=== PATIENT | male | born 1965 | race Caucasian/White ===

== ENCOUNTER 2019-10-02 07:00 | Inpatient (IN) ==
[2019-10-04] MEDS ORDERED: DEXTROSE 10% 250 ML BAG IV PRN (09:52)
[2019-10-04] MEDS ORDERED: GLUCAGON 1 MG VIAL IM PRN (09:52)
[2019-10-04 10:33] LABS: Basophils % 0.5 % (0.0-0.8); Eosinophils # 0.1 10*3/uL (0.0-0.87); Eosinophils % 1.2 % (0.00-10.9); Hematocrit 45.1 VOL% (42.0-52.0); Hemoglobin 15.5 GM/DL (14.0-18.0); Immature Granulocytes % 0.2 %; Immature Granulocytes Absolute 0.01 #; Lymphocytes # 1.3 10*3/uL (1.4-4.0); Lymphocytes % 21.2 % (21.2-54.2); Mean Corpuscular HGB Conc 34.4 GM/DL (32-36); Mean Corpuscular Volume 88.6 FL (87-102); Mean Platelet Volume 10.4 FL (9.6-12.0); Monocytes % 9.4 % (1.7-12.7); Neutrophils % 67.5 % (38.7-73.9); Platelet Count 279 T/CUMM (130-400); Red Blood Count 5.09 MC/CUMM (3.8-5.5); Red Cell Distribution Width 11.5 % (9.3-17.3); White Blood Count 6.1 T/CUMM (4-12)
[2019-10-04] MEDS ORDERED: NITROGLYCERIN SL 0.4 MG TABLET SL PRN (10:37)
[2019-10-04] MEDS ORDERED: MORPHINE 4 MG/1 ML VIAL IV PRN (10:38)
[2019-10-04] MEDS ORDERED: ZALEPLON 5 MG CAPSULE PO PRN (10:38)
[2019-10-04 10:49] LABS: Albumin 4.2 G/DL (3.4-5.0); Bilirubin,Total 0.4 MG/DL (0.2-1.0); Calcium 9.9 MG/DL (8.5-10.1); Osmolality,Calculated 269.4 MOS/KG (273-304); Total Protein 7.8 G/DL (6.4-8.3)
[2019-10-04 11:20] LABS: ABG Base Excess 1.4 MMOL/L (-2.5-2.5); ABG HCO3 25.6 MMOL/L (20-26); ABG Oxygen Saturation 96.7 % (95-100); ABG PH 7.456 (7.35-7.45); ABG TCO2 20.6 MMOL/L (23-27)
[2019-10-04] MEDS: CHLORHEXIDINE 4% SOLN 118 ML BOTTLE TOP SCH ×2 (15:24→21:07)
[2019-10-04] MEDS: CHLORHEXIDINE 0.12% ORAL RINSE 60 ML BOTTLE SWISH/SPIT SCH (21:07)
[2019-10-05] MEDS ORDERED: PAPAVERINE 60 MG/2 ML VIAL ONE (04:25)
[2019-10-05] MEDS ORDERED: VANCOMYCIN 500 MG VIAL ONE (04:26)
[2019-10-05] MEDS ORDERED: VANCOMYCIN 1,000 MG VIAL ONE (04:26)
[2019-10-05] MEDS: CHLORHEXIDINE 4% SOLN 118 ML BOTTLE TOP SCH ×2 (04:41→11:21)
[2019-10-05] MEDS ORDERED: DIAZEPAM 5 MG TABLET PO ONE (05:00)
[2019-10-05] MEDS ORDERED: FAMOTIDINE 20 MG TABLET PO ONE (05:00)
[2019-10-05] MEDS ORDERED: CEFUROXIME INJ 1,500 MG in SYRINGE 1 EACH IV ONE (06:00)
[2019-10-05 07:32] LABS: ABG Base Excess 1.6 MMOL/L (-2.5-2.5); ABG HCO3 25.9 MMOL/L (20-26); ABG PH 7.496 (7.35-7.45); ABG TCO2 20.4 MMOL/L (23-27); Glucose Heart Surgery 96 MG/DL (74-106); Hematocrit Heart Surgery 43.9 PERCENT (42-52); Hemoglobin Heart Surgery 14.3 G/DL (14.0-18.0); Ionized Calcium Arterial 1.14 MMOL/L (1.21-1.46); PH Patient Temp Arterial 7.496; Patient Temperature 37 CELCIUS; Potassium Heart/CVR 3.5 MMOL/L (3.5-5.1); Sodium Heart/CVR 136 MMOL/L (135-145)
[2019-10-05 08:28] LABS: Apearance,Urine CLEAR (Clear); Bilirubin,Urine Negative (Negative); Blood, Urine Negative (Negative); Glucose,Urine (UA) Negative (Negative); Hyaline Casts,Urine 1 /LPF (0-3); Ketones,Urine Negative (Negative); Mucus,Urine Occasional /LPF (Occasional); Nitrite,Urine Negative (Negative); Protein,Urine Negative; RBC,Urine 1 /HPF (0-4); Squamous Epithelial Cell,Urine Occasional /HPF (0-10); Urine Color Yellow (Yellow); Urine Specific Gravity 1.021 (1.001-1.035); Urine Urobilinogen < 2.0 EU/DL (0.2-1.0); WBC,Urine 5 /HPF (0-6)
[2019-10-05 08:49] LABS: Hematocrit Heart Surgery 27.3 PERCENT (42-52); Hemoglobin Heart Surgery 8.8 G/DL (14.0-18.0); PCO2 Patient Temp Venous 33.5 MM HG; PH Patient Temp Venous 7.467; PO2 Patient Temp Venous 38.5 MM HG; Potassium Heart/CVR 4.2 MMOL/L (3.5-5.1); VBG Base Excess 0.9 MEQ/L (0-4); VBG Oxygen Saturation 82.1 %; VBG PCO2 36.9 MMHG (41-51); VBG PH 7.437; VBG PO2 44.3 MMHG (17-40)
[2019-10-05] MEDS ORDERED: PHENYLEPHRINE DRIP 40 MG/250 ML PREMIX IV ONE (08:52)
[2019-10-05] MEDS ORDERED: POTASSIUM CHLORIDE RIDER 100 ML IV ONE (08:52)
[2019-10-05] MEDS ORDERED: PHENYLEPHRINE DRIP 20 MG/250 ML PREMIX IV ONE (09:09)
[2019-10-05] MEDS ORDERED: SEVOFLURANE 1 UNIT/15 MINUTE INH ONE (09:09)
[2019-10-05] MEDS ORDERED: HEPARIN/NACL 0.9% 2 UNITS/ML 500 ML IV ONE (09:09)
[2019-10-05] MEDS ORDERED: CALCIUM CHLORIDE 1,000 MG/10 ML VIAL IV ONE (09:09)
[2019-10-05] MEDS ORDERED: LIDOCAINE 2% 5 ML VIAL ONE ×2 (09:09→10:25)
[2019-10-05] MEDS ORDERED: MIDAZOLAM 10 MG/2 ML VIAL ONE (09:09)
[2019-10-05] MEDS ORDERED: ETOMIDATE 40 MG/20 ML VIAL IV ONE (09:10)
[2019-10-05] MEDS ORDERED: SUFentanil 250 MCG/5 ML AMP ONE (09:10)
[2019-10-05] MEDS ORDERED: VECURONIUM 10 MG VIAL IV ONE (09:10)
[2019-10-05] MEDS ORDERED: NITROGLYCERIN DRIP 50 MG/250 ML BOTTLE IV ONE (09:10)
[2019-10-05] MEDS ORDERED: MINERAL OIL/PETROLATUM OPH OINT 3.5 GM TUBE ONE (09:10)
[2019-10-05] MEDS ORDERED: SUFentanil 50 MCG/ML AMP ONE (09:10)
[2019-10-05] MEDS ORDERED: GLYCOPYRROLATE 0.4 MG/2 ML VIAL ONE (09:10)
[2019-10-05] MEDS ORDERED: AMINOCAPROIC ACID 5,000 MG/20 ML VIAL ONE (09:11)
[2019-10-05] MEDS ORDERED: SODIUM CHLORIDE 0.9% 1,000 ML IV ONE (09:11)
[2019-10-05] MEDS ORDERED: PHENYLEPHRINE 1 MG/10 ML SYRINGE IV ONE (09:11)
[2019-10-05] MEDS ORDERED: SODIUM CHLORIDE 0.9% 250 ML IV ONE (09:11)
[2019-10-05] MEDS ORDERED: LACTATED RINGERS 1,000 ML IV ONE (09:11)
[2019-10-05 09:23] LABS: Hematocrit Heart Surgery 31.9 PERCENT (42-52); Hemoglobin Heart Surgery 10.3 G/DL (14.0-18.0); PCO2 Patient Temp Venous 28.5 MM HG; PH Patient Temp Venous 7.515; Potassium Heart/CVR 3.9 MMOL/L (3.5-5.1); VBG Base Excess 0.9 MEQ/L (0-4); VBG Oxygen Saturation 89.2 %; VBG PCO2 38.1 MMHG (41-51); VBG PH 7.427; VBG PO2 54.2 MMHG (17-40)
[2019-10-05 09:53] LABS: Hematocrit Heart Surgery 33.9 PERCENT (42-52); PH Patient Temp Venous 7.512; PO2 Patient Temp Venous 37.8 MM HG; Potassium Heart/CVR 5.5 MMOL/L (3.5-5.1); VBG Oxygen Saturation 82.6 %; VBG PCO2 31.9 MMHG (41-51); VBG PH 7.482; VBG PO2 43.5 MMHG (17-40)
[2019-10-05] MEDS ORDERED: MAGNESIUM SULFATE 5 GM/10 ML VIAL IV ONE (10:25)
[2019-10-05] MEDS ORDERED: PROTAMINE SULFATE 250 MG/25 ML VIAL IV ONE (10:25)
[2019-10-05] MEDS ORDERED: MANNITOL 100 GM/500 ML BAG IV ONE (10:25)
[2019-10-05] MEDS ORDERED: DEXTROSE 5% KCL 20 MEQ 20 MEQ/1,000 ML BAG IV ONE (10:25)
[2019-10-05] MEDS ORDERED: SODIUM BICARBONATE 50 MEQ/50 ML VIAL IV ONE (10:25)
[2019-10-05] MEDS ORDERED: ALBUMIN 25% 25 GM/100 ML VIAL IV ONE (10:25)
[2019-10-05] MEDS ORDERED: HEPARIN 10,000 UNIT/10 ML VIAL ONE (10:26)
[2019-10-05] MEDS ORDERED: PROTAMINE SULFATE 50 MG/5 ML VIAL IV ONE (10:26)
[2019-10-05] MEDS ORDERED: methylPREDNISolone SOD SUC 1,000 MG/8 ML VIAL ONE (10:26)
[2019-10-05] MEDS ORDERED: POTASSIUM CHLORIDE 20 MEQ/10 ML VIAL ONE (10:26)
[2019-10-05] MEDS ORDERED: FUROSEMIDE 20 MG/2 ML VIAL ONE (10:26)
[2019-10-05 10:33] LABS: ABG Base Excess -0.8 MMOL/L (-2.5-2.5); ABG HCO3 23.7 MMOL/L (20-26); ABG Oxygen Saturation 99.7 % (95-100); ABG PCO2 36.8 MM HG (35-48); ABG PH 7.411 (7.35-7.45); ABG TCO2 20.8 MMOL/L (23-27); Glucose Heart Surgery 178 MG/DL (74-106); Hemoglobin Heart Surgery 11.7 G/DL (14.0-18.0); Ionized Calcium Arterial 1.29 MMOL/L (1.21-1.46); PCO2 Patient Temp Arterial 36.8 MMHG; PH Patient Temp Arterial 7.411; Patient Temperature 37 CELCIUS; Potassium Heart/CVR 3.5 MMOL/L (3.5-5.1); Sodium Heart/CVR 133 MMOL/L (135-145)
[2019-10-05] MEDS ORDERED: MAGNESIUM SULF RIDER 4 GM in PREMIX 1 EACH IV PRN (11:13)
[2019-10-05] MEDS ORDERED: INSULIN REGULAR DRIP 100 ML IV SCH (11:13)
[2019-10-05] MEDS ORDERED: LACTATED RINGERS 250 ML IV PRN (11:13)
[2019-10-05] MEDS ORDERED: MAGNESIUM SULF RIDER 2 GM in PREMIX 1 EACH IV PRN (11:13)
[2019-10-05] MEDS ORDERED: INSULIN REGULAR 100 UNIT/ML IV PRN (11:13)
[2019-10-05] MEDS ORDERED: MORPHINE 10 MG/1 ML VIAL IV PRN (11:13)
[2019-10-05] MEDS ORDERED: NITROPRUSSIDE 100 MG in DEXTROSE 5% 250 ML IV PRN (11:13)
[2019-10-05] MEDS ORDERED: PHENYLEPHRINE DRIP 40 MG/250 ML PREMIX IV PRN (11:13)
[2019-10-05] MEDS ORDERED: MIDAZOLAM 2 MG/2 ML VIAL IV PRN (11:13)
[2019-10-05] MEDS ORDERED: ACETAMINOPHEN 650 MG SUPP RECTAL PRN (11:13)
[2019-10-05] MEDS ORDERED: MIDAZOLAM 10 MG/2 ML VIAL IV PRN (11:13)
[2019-10-05] MEDS ORDERED: INSULIN REGULAR 100 UNIT/ML IV ONE (11:13)
[2019-10-05] MEDS ORDERED: CHLORHEXIDINE 4% SOLN 118 ML BOTTLE TOP PRN (11:13)
[2019-10-05] MEDS ORDERED: VECURONIUM 10 MG VIAL IV PRN ×2 (11:13)
[2019-10-05] MEDS ORDERED: CALCIUM CHLORIDE 1,000 MG/10 ML SYRINGE IV PRN (11:13)
[2019-10-05] MEDS ORDERED: DEXTROSE 10% 250 ML BAG IV PRN ×2 (11:13)
[2019-10-05] MEDS ORDERED: ONDANSETRON 4 MG/2 ML VIAL IV PRN (11:13)
[2019-10-05] MEDS ORDERED: SODIUM CHLORIDE 0.45% 1,000 ML IV SCH ×2 (11:13)
[2019-10-05 11:35] LABS: ABG Base Excess -0.5 MMOL/L (-2.5-2.5); ABG Oxygen Saturation 98.9 % (95-100); ABG PCO2 36.5 MM HG (35-48); ABG PH 7.418 (7.35-7.45); ABG TCO2 20.6 MMOL/L (23-27); Glucose Heart Surgery 150 MG/DL (74-106); Hematocrit Heart Surgery 39.3 PERCENT (42-52); Hemoglobin Heart Surgery 12.8 G/DL (14.0-18.0); Potassium Heart/CVR 3.1 MMOL/L (3.5-5.1)
[2019-10-05] MEDS: POTASSIUM CHLORIDE RIDER 20 MEQ in PREMIX 1 EACH IV PRN ×5 (11:37→20:30)
[2019-10-05 11:48] LABS: Basophils % 0.3 % (0.0-0.8); Eosinophils % 0.4 % (0.00-10.9); Hematocrit 36.7 VOL% (42.0-52.0); Hemoglobin 12.9 GM/DL (14.0-18.0); Immature Granulocytes % 0.4 %; Immature Granulocytes Absolute 0.04 #; Lymphocytes # 0.9 10*3/uL (1.4-4.0); Lymphocytes % 9.8 % (21.2-54.2); Mean Corpuscular HGB Conc 35.1 GM/DL (32-36); Mean Platelet Volume 10.4 FL (9.6-12.0); Neutrophils % 83.1 % (38.7-73.9); Platelet Count 203 T/CUMM (130-400); Red Blood Count 4.17 MC/CUMM (3.8-5.5); Red Cell Distribution Width 11.5 % (9.3-17.3); White Blood Count 9.4 T/CUMM (4-12)
[2019-10-05 11:53] LABS: INR 1.2; PT Patient Result 13.1 SECS (9.8-11.9); Partial Thromboplastin Time 26.8 SECS (23.9-33.8)
[2019-10-05 11:59] LABS: Albumin 3.7 G/DL (3.4-5.0); Calcium 9.1 MG/DL (8.5-10.1); Osmolality,Calculated 275.1 MOS/KG (273-304); Total Protein 6.4 G/DL (6.4-8.3)
[2019-10-05 12:01] LABS: CKMB % 7.2 %
[2019-10-05 12:04] LABS: Troponin I 4.26 NG/ML (0.00-0.045)
[2019-10-05] MEDS: POTASSIUM CHLORIDE RIDER 10 MEQ in PREMIX 1 EACH IV PRN ×2 (12:07→17:27)
[2019-10-05] MEDS: LACTATED RINGERS 1,000 ML IV PRN ×4 (12:09→20:18)
[2019-10-05 12:48] LABS: ABG Base Excess -0.1 MMOL/L (-2.5-2.5); ABG HCO3 24.4 MMOL/L (20-26); ABG Oxygen Saturation 98.9 % (95-100); ABG PCO2 35.7 MM HG (35-48); ABG PH 7.431 (7.35-7.45); ABG TCO2 20.8 MMOL/L (23-27); Glucose Heart Surgery 151 MG/DL (74-106); Hematocrit Heart Surgery 38.9 PERCENT (42-52); Hemoglobin Heart Surgery 12.6 G/DL (14.0-18.0); Potassium Heart/CVR 3.6 MMOL/L (3.5-5.1)
[2019-10-05 14:11] LABS: ABG Base Excess -0.9 MMOL/L (-2.5-2.5); ABG HCO3 23.6 MMOL/L (20-26); ABG Oxygen Saturation 97.5 % (95-100); ABG PCO2 37.2 MM HG (35-48); ABG PH 7.406 (7.35-7.45); ABG PO2 92.6 MM HG (80-95); ABG TCO2 20.4 MMOL/L (23-27); Glucose Heart Surgery 190 MG/DL (74-106); Hematocrit Heart Surgery 40.1 PERCENT (42-52); Hemoglobin Heart Surgery 13.1 G/DL (14.0-18.0); Potassium Heart/CVR 3.9 MMOL/L (3.5-5.1)
[2019-10-05] MEDS: ALBUMIN 5% 12.5 GM in PREMIX 1 EACH IV PRN ×2 (15:52→17:16)
[2019-10-05 16:44] LABS: ABG Base Excess -4.6 MMOL/L (-2.5-2.5); ABG HCO3 20.6 MMOL/L (20-26); ABG Oxygen Saturation 97.8 % (95-100); ABG PCO2 35.3 MM HG (35-48); ABG PH 7.364 (7.35-7.45); ABG TCO2 17.8 MMOL/L (23-27); Glucose Heart Surgery 220 MG/DL (74-106); Hematocrit Heart Surgery 38.4 PERCENT (42-52); Hemoglobin Heart Surgery 12.5 G/DL (14.0-18.0); Potassium Heart/CVR 3.6 MMOL/L (3.5-5.1)
[2019-10-05] MEDS: MORPHINE 4 MG/1 ML VIAL IV PRN (17:38)
[2019-10-05 18:29] LABS: ABG Base Excess -6.1 MMOL/L (-2.5-2.5); ABG HCO3 19.4 MMOL/L (20-26); ABG Oxygen Saturation 96.5 % (95-100); ABG PCO2 39.2 MM HG (35-48); ABG PO2 90.6 MM HG (80-95); ABG TCO2 17.8 MMOL/L (23-27); Glucose Heart Surgery 179 MG/DL (74-106); Hematocrit Heart Surgery 35.2 PERCENT (42-52); Hemoglobin Heart Surgery 11.4 G/DL (14.0-18.0); Potassium Heart/CVR 3.9 MMOL/L (3.5-5.1)
[2019-10-05] MEDS: CEFUROXIME INJ 1,500 MG in SYRINGE 1 EACH IV SCH (18:50)
[2019-10-05 20:11] LABS: ABG Base Excess -3.1 MMOL/L (-2.5-2.5); ABG HCO3 21.8 MMOL/L (20-26); ABG Oxygen Saturation 95.3 % (95-100); ABG PCO2 37.7 MM HG (35-48); ABG PH 7.369 (7.35-7.45); ABG PO2 76.3 MM HG (80-95); ABG TCO2 19.5 MMOL/L (23-27); Glucose Heart Surgery 151 MG/DL (74-106); Hematocrit Heart Surgery 35.6 PERCENT (42-52); Hemoglobin Heart Surgery 11.5 G/DL (14.0-18.0); Potassium Heart/CVR 4.2 MMOL/L (3.5-5.1)
[2019-10-05 20:24] LABS: CKMB % 5.8 %
[2019-10-05 20:26] LABS: Troponin I 2.86 NG/ML (0.00-0.045)
[2019-10-05] MEDS ORDERED: CHLORHEXIDINE 0.12% ORAL RINSE 60 ML BOTTLE SWISH/SPIT SCH (21:00)
[2019-10-06 04:35] LABS: ABG HCO3 24.4 MMOL/L (20-26); ABG Oxygen Saturation 94.6 % (95-100); ABG PCO2 36.4 MM HG (35-48); ABG PH 7.427 (7.35-7.45); ABG PO2 68.1 MM HG (80-95); ABG TCO2 21.4 MMOL/L (23-27); Glucose Heart Surgery 142 MG/DL (74-106); Hematocrit Heart Surgery 34.9 PERCENT (42-52); Hemoglobin Heart Surgery 11.3 G/DL (14.0-18.0); Potassium Heart/CVR 3.9 MMOL/L (3.5-5.1)
[2019-10-06 04:39] LABS: Basophils % 0.1 % (0.0-0.8); Hematocrit 33.5 VOL% (42.0-52.0); Hemoglobin 11.2 GM/DL (14.0-18.0); Immature Granulocytes % 0.4 %; Immature Granulocytes Absolute 0.05 #; Lymphocytes # 0.6 10*3/uL (1.4-4.0); Lymphocytes % 4.2 % (21.2-54.2); Mean Corpuscular HGB Conc 33.4 GM/DL (32-36); Mean Corpuscular Volume 92.5 FL (87-102); Mean Platelet Volume 10.6 FL (9.6-12.0); Monocytes % 5.1 % (1.7-12.7); Neutrophils % 90.2 % (38.7-73.9); Platelet Count 227 T/CUMM (130-400); Red Blood Count 3.62 MC/CUMM (3.8-5.5); Red Cell Distribution Width 11.9 % (9.3-17.3); White Blood Count 14.2 T/CUMM (4-12)
[2019-10-06] MEDS: POTASSIUM CHLORIDE RIDER 20 MEQ in PREMIX 1 EACH IV PRN ×2 (04:45→05:20)
[2019-10-06 04:58] LABS: Albumin 3.5 G/DL (3.4-5.0); Bilirubin,Direct 0.17 MG/DL (0.0-0.20); Bilirubin,Total 0.5 MG/DL (0.2-1.0); Calcium 8.3 MG/DL (8.5-10.1); Osmolality,Calculated 279.7 MOS/KG (273-304)
[2019-10-06 04:59] LABS: CKMB % 4.8 %
[2019-10-06 05:04] LABS: Troponin I 2.14 NG/ML (0.00-0.045)
[2019-10-06 05:38] LABS: Hypochromasia 1+; Lymphocytes 4 % (20-55); Platelet Estimate Adequate; Segmented Neutrophils 93 % (50-85); Total Cells Counted 100
[2019-10-06] MEDS: MORPHINE 4 MG/1 ML VIAL IV PRN (05:47)
[2019-10-06] MEDS: CEFUROXIME INJ 1,500 MG in SYRINGE 1 EACH IV SCH ×2 (06:23→17:49)
[2019-10-06] MEDS ORDERED: INSULIN REGULAR 100 UNIT/ML SUBCUT SCH (08:00)
[2019-10-06] MEDS ORDERED: MAGNESIUM HYDROXIDE SUSP 30 ML UDCUP PO PRN (08:38)
[2019-10-06] MEDS ORDERED: MAGNESIUM SULF RIDER 2 GM in PREMIX 1 EACH IV PRN (08:38)
[2019-10-06] MEDS ORDERED: ALUMINUM/MAGNES/SIMETH MAX STR 30 ML UDCUP PO PRN (08:38)
[2019-10-06] MEDS ORDERED: GLUCAGON 1 MG VIAL IM PRN (08:38)
[2019-10-06] MEDS ORDERED: DEXTROSE 50% 25 GM/50 ML VIAL IV PRN (08:38)
[2019-10-06] MEDS ORDERED: ACETAMINOPHEN 325 MG TABLET PO PRN (08:38)
[2019-10-06] MEDS ORDERED: ONDANSETRON 4 MG/2 ML VIAL IV PRN (08:38)
[2019-10-06] MEDS ORDERED: MAGNESIUM SULF RIDER 4 GM in PREMIX 1 EACH IV PRN (08:38)
[2019-10-06] MEDS: ASPIRIN EC 325 MG TABLET PO SCH (08:54)
[2019-10-06] MEDS: PANTOPRAZOLE 40 MG TABLET PO SCH (08:54)
[2019-10-06] MEDS: FENOFIBRATE 145 MG TABLET PO SCH (08:55)
[2019-10-06] MEDS: oxyCODONE/ACETAMINOPHEN 5-325 MG TABLET PO PRN ×4 (08:55→21:41)
[2019-10-06] MEDS ORDERED: DOCUSATE SODIUM 100 MG CAPSULE PO SCH (09:00)
[2019-10-06] MEDS: FERROUS SULFATE 325 MG TABLET PO SCH (09:31)
[2019-10-06] MEDS: SODIUM CHLOR 0.45% KCL 20 MEQ 20 MEQ/1,000 ML BAG IV SCH (10:18)
[2019-10-06] MEDS: CHLORHEXIDINE 0.12% ORAL RINSE 60 ML BOTTLE SWISH/SPIT SCH ×3 (10:19→21:41)
[2019-10-06] MEDS ORDERED: oxyCODONE/ACETAMINOPHEN 5-325 MG TABLET PO PRN (11:28)
[2019-10-06 11:54] LABS: CKMB % 3.8 %
[2019-10-06 12:01] LABS: Troponin I 2.27 NG/ML (0.00-0.045)
[2019-10-06] MEDS: SODIUM CHLORIDE 0.9% 1,000 ML IV SCH ×2 (13:45→13:46)
[2019-10-06] MEDS: ROSUVASTATIN 20 MG TABLET PO SCH (21:10)
[2019-10-06] MEDS: DOCUSATE SODIUM 100 MG CAPSULE PO SCH (21:39)
[2019-10-06] MEDS: ZALEPLON 5 MG CAPSULE PO PRN (21:39)
[2019-10-07] MEDS: oxyCODONE/ACETAMINOPHEN 5-325 MG TABLET PO PRN ×3 (04:29→21:35)
[2019-10-07 05:58] LABS: Basophils % 0.1 % (0.0-0.8); Hemoglobin 10.9 GM/DL (14.0-18.0); Immature Granulocytes % 0.6 %; Immature Granulocytes Absolute 0.09 #; Lymphocytes # 1.2 10*3/uL (1.4-4.0); Lymphocytes % 8.2 % (21.2-54.2); Mean Corpuscular Volume 93.5 FL (87-102); Mean Platelet Volume 11.2 FL (9.6-12.0); Monocytes % 6.9 % (1.7-12.7); Neutrophils % 84.2 % (38.7-73.9); Platelet Count 205 T/CUMM (130-400); Red Blood Count 3.53 MC/CUMM (3.8-5.5); White Blood Count 14.7 T/CUMM (4-12)
[2019-10-07] MEDS ORDERED: FUROSEMIDE 40 MG/4 ML VIAL IV ONE ×2 (06:00→15:00)
[2019-10-07 06:30] LABS: Albumin 3.2 G/DL (3.4-5.0); Bilirubin,Direct 0.12 MG/DL (0.0-0.20); Bilirubin,Total 0.4 MG/DL (0.2-1.0); Calcium 8.5 MG/DL (8.5-10.1); Total Protein 5.6 G/DL (6.4-8.3)
[2019-10-07 06:33] LABS: Alanine Aminotransferase 27 U/L (16-61); Albumin 3.2 G/DL (3.4-5.0); Alkaline Phosphatase 42 U/L (45-117); Aspartate Amino Transferase 23 U/L (0-37); Bilirubin,Indirect 0.3 MG/DL (0.0-1.0)
[2019-10-07] MEDS: ASPIRIN EC 325 MG TABLET PO SCH (08:56)
[2019-10-07] MEDS: FENOFIBRATE 145 MG TABLET PO SCH (08:56)
[2019-10-07] MEDS: ASCORBIC ACID 500 MG TABLET PO SCH ×2 (08:56→21:32)
[2019-10-07] MEDS: FERROUS SULFATE 325 MG TABLET PO SCH (08:56)
[2019-10-07] MEDS: CHLORHEXIDINE 0.12% ORAL RINSE 60 ML BOTTLE SWISH/SPIT SCH ×2 (08:56→21:37)
[2019-10-07] MEDS: SODIUM CHLOR 0.45% KCL 20 MEQ 20 MEQ/1,000 ML BAG IV SCH (08:56)
[2019-10-07] MEDS: PANTOPRAZOLE 40 MG TABLET PO SCH (08:56)
[2019-10-07] MEDS: ROSUVASTATIN 20 MG TABLET PO SCH (08:56)
[2019-10-07] MEDS: DOCUSATE SODIUM 100 MG CAPSULE PO SCH (21:32)
[2019-10-08 05:53] LABS: Basophils % 0.2 % (0.0-0.8); Eosinophils # 0.1 10*3/uL (0.0-0.87); Eosinophils % 0.6 % (0.00-10.9); Hematocrit 34.8 VOL% (42.0-52.0); Hemoglobin 11.6 GM/DL (14.0-18.0); Immature Granulocytes % 0.4 %; Immature Granulocytes Absolute 0.05 #; Lymphocytes % 16.5 % (21.2-54.2); Mean Corpuscular HGB Conc 33.3 GM/DL (32-36); Mean Corpuscular Volume 93.3 FL (87-102); Mean Platelet Volume 10.9 FL (9.6-12.0); Monocytes % 8.7 % (1.7-12.7); Neutrophils % 73.6 % (38.7-73.9); Platelet Count 208 T/CUMM (130-400); Red Blood Count 3.73 MC/CUMM (3.8-5.5); Red Cell Distribution Width 11.8 % (9.3-17.3); White Blood Count 11.9 T/CUMM (4-12)
[2019-10-08 06:26] LABS: Albumin 3.2 G/DL (3.4-5.0); Bilirubin,Direct 0.15 MG/DL (0.0-0.20); Bilirubin,Total 0.5 MG/DL (0.2-1.0); Calcium 8.7 MG/DL (8.5-10.1); Total Protein 6.4 G/DL (6.4-8.3)
[2019-10-08 06:31] LABS: Alanine Aminotransferase 24 U/L (16-61); Albumin 3.2 G/DL (3.4-5.0); Alkaline Phosphatase 46 U/L (45-117); Aspartate Amino Transferase 15 U/L (0-37); Bilirubin,Indirect 0.6 MG/DL (0.0-1.0)
[2019-10-08] MEDS: CHLORHEXIDINE 0.12% ORAL RINSE 60 ML BOTTLE SWISH/SPIT SCH ×2 (08:54→20:49)
[2019-10-08] MEDS: ASCORBIC ACID 500 MG TABLET PO SCH ×2 (08:54→20:49)
[2019-10-08] MEDS: FERROUS SULFATE 325 MG TABLET PO SCH (08:54)
[2019-10-08] MEDS: FENOFIBRATE 145 MG TABLET PO SCH (08:54)
[2019-10-08] MEDS: ROSUVASTATIN 20 MG TABLET PO SCH (08:54)
[2019-10-08] MEDS: ASPIRIN EC 325 MG TABLET PO SCH (08:54)
[2019-10-08] MEDS: PANTOPRAZOLE 40 MG TABLET PO SCH (08:54)
[2019-10-08] MEDS: FUROSEMIDE 40 MG/4 ML VIAL IV SCH ×2 (09:00→15:06)
[2019-10-08] MEDS: oxyCODONE/ACETAMINOPHEN 5-325 MG TABLET PO PRN (15:06)
[2019-10-08] MEDS: DOCUSATE SODIUM 100 MG CAPSULE PO SCH (20:49)
[2019-10-09 04:02] LABS: Calcium 8.2 MG/DL (8.5-10.1); Osmolality,Calculated 275.2 MOS/KG (273-304)
[2019-10-09] MEDS: POTASSIUM CHLORIDE 20 MEQ TABLET PO PRN ×5 (05:42→23:05)
[2019-10-09] MEDS: ASCORBIC ACID 500 MG TABLET PO SCH ×2 (10:04→21:04)
[2019-10-09] MEDS: PANTOPRAZOLE 40 MG TABLET PO SCH (10:04)
[2019-10-09] MEDS: ASPIRIN EC 325 MG TABLET PO SCH (10:04)
[2019-10-09] MEDS: ROSUVASTATIN 20 MG TABLET PO SCH (10:05)
[2019-10-09] MEDS: CHLORHEXIDINE 0.12% ORAL RINSE 60 ML BOTTLE SWISH/SPIT SCH ×2 (10:05→21:04)
[2019-10-09] MEDS: FENOFIBRATE 145 MG TABLET PO SCH (10:05)
[2019-10-09] MEDS: FERROUS SULFATE 325 MG TABLET PO SCH (10:05)
[2019-10-09] MEDS: FUROSEMIDE 40 MG/4 ML VIAL IV SCH ×2 (10:06→17:32)
[2019-10-09 10:45] LABS: LDH,Pleural Fluid 307 U/L; Triglycerides,Body Fluid 2904 MG/DL
[2019-10-09] MEDS: oxyCODONE/ACETAMINOPHEN 5-325 MG TABLET PO PRN (12:55)
[2019-10-09] MEDS ORDERED: CYCLOBENZAPRINE 10 MG TABLET PO PRN ×2 (14:05→17:39)
[2019-10-09] MEDS ORDERED: HYDROmorphone 2 MG/1 ML VIAL IV ONE (18:14)
[2019-10-09] MEDS: DOCUSATE SODIUM 100 MG CAPSULE PO SCH (21:04)
[2019-10-10] MEDS: oxyCODONE/ACETAMINOPHEN 5-325 MG TABLET PO PRN ×4 (01:15→18:21)
[2019-10-10 05:23] LABS: Basophils % 0.3 % (0.0-0.8); Eosinophils # 0.3 10*3/uL (0.0-0.87); Eosinophils % 2.8 % (0.00-10.9); Hematocrit 33.6 VOL% (42.0-52.0); Hemoglobin 11.3 GM/DL (14.0-18.0); Immature Granulocytes % 0.6 %; Immature Granulocytes Absolute 0.06 #; Lymphocytes # 1.7 10*3/uL (1.4-4.0); Lymphocytes % 16.6 % (21.2-54.2); Mean Corpuscular HGB Conc 33.6 GM/DL (32-36); Mean Corpuscular Volume 92.3 FL (87-102); Mean Platelet Volume 10.3 FL (9.6-12.0); Neutrophils % 69.7 % (38.7-73.9); Platelet Count 229 T/CUMM (130-400); Red Blood Count 3.64 MC/CUMM (3.8-5.5); Red Cell Distribution Width 11.6 % (9.3-17.3); White Blood Count 10.4 T/CUMM (4-12)
[2019-10-10 05:46] LABS: Alanine Aminotransferase 24 U/L (16-61); Albumin 2.7 G/DL (3.4-5.0); Alkaline Phosphatase 50 U/L (45-117); Aspartate Amino Transferase 15 U/L (0-37); Bilirubin,Indirect 0.4 MG/DL (0.0-1.0); Blood Urea Nitrogen 31 MG/DL (7-18); Calcium 8.3 MG/DL (8.5-10.1); Estimated Glom Filtration Rate 66 ML/MIN; Glucose 96 MG/DL (74-106); Osmolality,Calculated 274.2 MOS/KG (273-304); Total Protein 6.1 G/DL (6.4-8.3)
[2019-10-10 05:47] LABS: Troponin I 0.277 NG/ML (0.00-0.045)
[2019-10-10] MEDS: FUROSEMIDE 40 MG/4 ML VIAL IV SCH (09:25)
[2019-10-10] MEDS: FENOFIBRATE 145 MG TABLET PO SCH (09:26)
[2019-10-10] MEDS: PANTOPRAZOLE 40 MG TABLET PO SCH (09:27)
[2019-10-10] MEDS: FERROUS SULFATE 325 MG TABLET PO SCH (09:27)
[2019-10-10] MEDS: ROSUVASTATIN 20 MG TABLET PO SCH (09:27)
[2019-10-10] MEDS: CHLORHEXIDINE 0.12% ORAL RINSE 60 ML BOTTLE SWISH/SPIT SCH ×2 (09:27→21:56)
[2019-10-10] MEDS: ASPIRIN EC 325 MG TABLET PO SCH (09:27)
[2019-10-10] MEDS: ASCORBIC ACID 500 MG TABLET PO SCH ×2 (09:27→21:31)
[2019-10-10] MEDS ORDERED: HYDROmorphone 2 MG/1 ML VIAL IV PRN (20:01)
[2019-10-10] MEDS ORDERED: METOPROLOL SUCCINATE XL 50 MG TABLET PO ONE (20:17)
[2019-10-10] MEDS: DOCUSATE SODIUM 100 MG CAPSULE PO SCH (21:31)
[2019-10-10] MEDS: methylPREDNISolone SOD SUC 40 MG/1 ML VIAL IV SCH (21:31)
[2019-10-11] MEDS: oxyCODONE/ACETAMINOPHEN 5-325 MG TABLET PO PRN ×2 (05:39→21:11)
[2019-10-11 06:28] LABS: Basophils % 0.1 % (0.0-0.8); Eosinophils % 0.1 % (0.00-10.9); Hemoglobin 11.1 GM/DL (14.0-18.0); Immature Granulocytes % 0.8 %; Immature Granulocytes Absolute 0.12 #; Lymphocytes # 0.5 10*3/uL (1.4-4.0); Lymphocytes % 3.5 % (21.2-54.2); Mean Corpuscular HGB Conc 32.6 GM/DL (32-36); Mean Corpuscular Volume 93.4 FL (87-102); Mean Platelet Volume 10.9 FL (9.6-12.0); Monocytes % 5.5 % (1.7-12.7); Platelet Count 249 T/CUMM (130-400); Red Blood Count 3.64 MC/CUMM (3.8-5.5); Red Cell Distribution Width 11.8 % (9.3-17.3); White Blood Count 15.6 T/CUMM (4-12)
[2019-10-11 06:46] LABS: Calcium 8.7 MG/DL (8.5-10.1); Osmolality,Calculated 273.4 MOS/KG (273-304)
[2019-10-11 06:53] LABS: Alanine Aminotransferase 23 U/L (16-61); Albumin 2.7 G/DL (3.4-5.0); Alkaline Phosphatase 52 U/L (45-117); Aspartate Amino Transferase 19 U/L (0-37); Blood Urea Nitrogen 28 MG/DL (7-18); Calcium 8.2 MG/DL (8.5-10.1); Estimated Glom Filtration Rate 71 ML/MIN; Glucose 131 MG/DL (74-106); Total Protein 5.9 G/DL (6.4-8.3); Troponin I 0.111 NG/ML (0.00-0.045)
[2019-10-11 07:17] LABS: Band Neutrophils 4 % (0-10); Lymphocytes 5 % (20-55); Platelet Estimate Normal; Segmented Neutrophils 87 % (50-85); Total Cells Counted 100
[2019-10-11 07:18] LABS: Anisocytosis Slight; Smudge Cells Few
[2019-10-11] MEDS: ASPIRIN EC 325 MG TABLET PO SCH (09:31)
[2019-10-11] MEDS: METOPROLOL SUCCINATE XL 50 MG TABLET PO SCH (09:31)
[2019-10-11] MEDS: ASCORBIC ACID 500 MG TABLET PO SCH ×2 (09:31→21:11)
[2019-10-11] MEDS: ROSUVASTATIN 20 MG TABLET PO SCH (09:31)
[2019-10-11] MEDS: PANTOPRAZOLE 40 MG TABLET PO SCH (09:32)
[2019-10-11] MEDS: FUROSEMIDE 40 MG/4 ML VIAL IV SCH (09:32)
[2019-10-11] MEDS: CHLORHEXIDINE 0.12% ORAL RINSE 60 ML BOTTLE SWISH/SPIT SCH ×2 (09:33→21:16)
[2019-10-11] MEDS: FERROUS SULFATE 325 MG TABLET PO SCH (09:33)
[2019-10-11] MEDS: methylPREDNISolone SOD SUC 40 MG/1 ML VIAL IV SCH ×2 (09:34→21:11)
[2019-10-11] MEDS: FENOFIBRATE 145 MG TABLET PO SCH (09:36)
[2019-10-11] MEDS: DOCUSATE SODIUM 100 MG CAPSULE PO SCH (21:11)
[2019-10-12 05:49] LABS: Basophils % 0.1 % (0.0-0.8); Hematocrit 30.6 VOL% (42.0-52.0); Hemoglobin 10.3 GM/DL (14.0-18.0); Immature Granulocytes % 1.4 %; Lymphocytes # 0.8 10*3/uL (1.4-4.0); Lymphocytes % 5.3 % (21.2-54.2); Mean Corpuscular HGB Conc 33.7 GM/DL (32-36); Mean Corpuscular Volume 91.6 FL (87-102); Mean Platelet Volume 10.4 FL (9.6-12.0); Monocytes % 6.6 % (1.7-12.7); Neutrophils % 86.6 % (38.7-73.9); Platelet Count 267 T/CUMM (130-400); Red Blood Count 3.34 MC/CUMM (3.8-5.5); Red Cell Distribution Width 11.9 % (9.3-17.3); White Blood Count 14.6 T/CUMM (4-12)
[2019-10-12 06:06] LABS: Calcium 9.2 MG/DL (8.5-10.1)
[2019-10-12] MEDS: PANTOPRAZOLE 40 MG TABLET PO SCH (09:13)
[2019-10-12] MEDS: ROSUVASTATIN 20 MG TABLET PO SCH (09:13)
[2019-10-12] MEDS: FERROUS SULFATE 325 MG TABLET PO SCH (09:13)
[2019-10-12] MEDS: ASPIRIN EC 325 MG TABLET PO SCH (09:13)
[2019-10-12] MEDS: ASCORBIC ACID 500 MG TABLET PO SCH ×2 (09:14→21:40)
[2019-10-12] MEDS: FENOFIBRATE 145 MG TABLET PO SCH (09:14)
[2019-10-12] MEDS: POTASSIUM CHLORIDE 20 MEQ TABLET PO PRN ×2 (09:14→17:02)
[2019-10-12] MEDS: METOPROLOL SUCCINATE XL 50 MG TABLET PO SCH (09:14)
[2019-10-12] MEDS: methylPREDNISolone SOD SUC 40 MG/1 ML VIAL IV SCH ×2 (09:14→21:40)
[2019-10-12] MEDS: CHLORHEXIDINE 0.12% ORAL RINSE 60 ML BOTTLE SWISH/SPIT SCH ×2 (09:19→21:40)
[2019-10-12] MEDS: DOCUSATE SODIUM 100 MG CAPSULE PO SCH (21:40)
[2019-10-12] MEDS: ZALEPLON 5 MG CAPSULE PO PRN ×2 (21:43→23:18)
[2019-10-13 06:09] LABS: Basophils % 0.1 % (0.0-0.8); Hematocrit 29.9 VOL% (42.0-52.0); Hemoglobin 9.6 GM/DL (14.0-18.0); Immature Granulocytes % 2.8 %; Immature Granulocytes Absolute 0.35 #; Lymphocytes % 7.8 % (21.2-54.2); Mean Corpuscular HGB Conc 32.1 GM/DL (32-36); Mean Corpuscular Volume 94.9 FL (87-102); Mean Platelet Volume 10.4 FL (9.6-12.0); Monocytes % 6.3 % (1.7-12.7); Platelet Count 300 T/CUMM (130-400); Red Blood Count 3.15 MC/CUMM (3.8-5.5); Red Cell Distribution Width 12.1 % (9.3-17.3); White Blood Count 12.3 T/CUMM (4-12)
[2019-10-13 06:21] LABS: Calcium 8.9 MG/DL (8.5-10.1); Osmolality,Calculated 283.7 MOS/KG (273-304)
[2019-10-13 08:12] VITALS: BP 130/64
[2019-10-13] MEDS: FENOFIBRATE 145 MG TABLET PO SCH (08:26)
[2019-10-13] MEDS: ASCORBIC ACID 500 MG TABLET PO SCH (08:26)
[2019-10-13] MEDS: methylPREDNISolone SOD SUC 40 MG/1 ML VIAL IV SCH (08:27)
[2019-10-13] MEDS: PANTOPRAZOLE 40 MG TABLET PO SCH (08:27)
[2019-10-13] MEDS: ASPIRIN EC 325 MG TABLET PO SCH (08:27)
[2019-10-13] MEDS: FERROUS SULFATE 325 MG TABLET PO SCH (08:27)
[2019-10-13] MEDS: METOPROLOL SUCCINATE XL 50 MG TABLET PO SCH (08:27)
[2019-10-13] MEDS: ROSUVASTATIN 20 MG TABLET PO SCH (08:27)
[2019-10-13] MEDS: CHLORHEXIDINE 0.12% ORAL RINSE 60 ML BOTTLE SWISH/SPIT SCH (08:32)
== END 2019-10-13 10:39 | disposition home or self-care (01) | DRG 236 ==
LOC: N.TELEN 10-04 09:02 → N.CVR 10-05 10:59 → N.TELES 10-06 13:22

== ENCOUNTER 2019-10-23 15:02 | Observation (INO) ==
[2019-10-23 15:44] LABS: Basophils % 0.2 % (0.0-0.8); Eosinophils % 0.2 % (0.00-10.9); Hematocrit 42.5 VOL% (42.0-52.0); Immature Granulocytes % 0.5 %; Immature Granulocytes Absolute 0.07 #; Lymphocytes # 1.3 10*3/uL (1.4-4.0); Lymphocytes % 9.7 % (21.2-54.2); Mean Corpuscular HGB Conc 32.9 GM/DL (32-36); Mean Platelet Volume 9.8 FL (9.6-12.0); Monocytes % 4.9 % (1.7-12.7); Neutrophils % 84.5 % (38.7-73.9); Platelet Count 455 T/CUMM (130-400); Red Blood Count 4.57 MC/CUMM (3.8-5.5); Red Cell Distribution Width 13.6 % (9.3-17.3); White Blood Count 13.7 T/CUMM (4-12)
[2019-10-23] MEDS ORDERED: DILTIAZEM 25 MG/5 ML VIAL IV ONE (15:44)
[2019-10-23] MEDS ORDERED: SOTALOL 80 MG TABLET PO STA (15:47)
[2019-10-23] MEDS ORDERED: DILTIAZEM 50 MG/10 ML VIAL IV STA (15:48)
[2019-10-23 15:56] LABS: INR 1.1; PT Patient Result 11.3 SECS (9.8-11.9); Partial Thromboplastin Time 25.3 SECS (23.9-33.8)
[2019-10-23] MEDS ORDERED: APIXABAN 5 MG TABLET ONE (16:11)
[2019-10-23 16:12] LABS: Albumin 3.6 G/DL (3.4-5.0); Bilirubin,Total 0.9 MG/DL (0.2-1.0); Calcium 9.2 MG/DL (8.5-10.1); Osmolality,Calculated 278.5 MOS/KG (273-304); Total Protein 7.4 G/DL (6.4-8.3)
[2019-10-23] MEDS ORDERED: APIXABAN 2.5 MG TABLET PO STA (16:14)
[2019-10-23] MEDS ORDERED: POTASSIUM CHLORIDE 20 MEQ TABLET PO PRN (16:33)
[2019-10-23] MEDS ORDERED: diphenhydrAMINE CAP 25 MG CAPSULE PO PRN (16:33)
[2019-10-23] MEDS ORDERED: ZALEPLON 5 MG CAPSULE PO PRN (16:33)
[2019-10-23] MEDS ORDERED: MAGNESIUM SULF RIDER 2 GM in PREMIX 1 EACH IV PRN (16:33)
[2019-10-23] MEDS ORDERED: MAGNESIUM SULF RIDER 4 GM in PREMIX 1 EACH IV PRN (16:33)
[2019-10-23] MEDS ORDERED: MORPHINE 4 MG/1 ML VIAL IV PRN (16:33)
[2019-10-23] MEDS ORDERED: ONDANSETRON 4 MG/2 ML VIAL IV PRN (16:33)
[2019-10-23] MEDS ORDERED: ALUMINUM/MAGNES/SIMETH MAX STR 30 ML UDCUP PO PRN (16:33)
[2019-10-23] MEDS ORDERED: ACETAMINOPHEN 325 MG TABLET PO PRN (16:37)
[2019-10-23] MEDS ORDERED: NITROGLYCERIN SL 0.4 MG TABLET SL PRN (16:37)
[2019-10-23] MEDS: ASCORBIC ACID 500 MG TABLET PO SCH (20:43)
[2019-10-23] MEDS: APIXABAN 2.5 MG TABLET PO SCH (20:43)
[2019-10-23] MEDS: SOTALOL 80 MG TABLET PO SCH (20:43)
[2019-10-23] MEDS ORDERED: APIXABAN 2.5 MG TABLET PO SCH (21:00)
[2019-10-23] MEDS ORDERED: DOCUSATE SODIUM 100 MG CAPSULE PO SCH (21:00)
[2019-10-24 05:19] LABS: Basophils % 0.4 % (0.0-0.8); Eosinophils # 0.2 10*3/uL (0.0-0.87); Eosinophils % 1.4 % (0.00-10.9); Hematocrit 37.3 VOL% (42.0-52.0); Hemoglobin 11.8 GM/DL (14.0-18.0); Immature Granulocytes % 0.5 %; Immature Granulocytes Absolute 0.05 #; Lymphocytes # 2.4 10*3/uL (1.4-4.0); Lymphocytes % 21.5 % (21.2-54.2); Mean Corpuscular HGB Conc 31.6 GM/DL (32-36); Mean Corpuscular Volume 95.4 FL (87-102); Mean Platelet Volume 10.2 FL (9.6-12.0); Monocytes % 6.2 % (1.7-12.7); Platelet Count 356 T/CUMM (130-400); Red Blood Count 3.91 MC/CUMM (3.8-5.5); Red Cell Distribution Width 13.5 % (9.3-17.3)
[2019-10-24 05:38] LABS: Albumin 3.1 G/DL (3.4-5.0); Bilirubin,Total 0.5 MG/DL (0.2-1.0); Calcium 8.8 MG/DL (8.5-10.1); Osmolality,Calculated 273.1 MOS/KG (273-304); Total Protein 6.3 G/DL (6.4-8.3)
[2019-10-24 07:58] VITALS: BP 103/66
[2019-10-24] MEDS ORDERED: PANTOPRAZOLE 40 MG TABLET PO SCH (09:00)
[2019-10-24] MEDS ORDERED: predniSONE 10 MG TABLET PO SCH (09:00)
[2019-10-24] MEDS ORDERED: ROSUVASTATIN 20 MG TABLET PO SCH (09:00)
[2019-10-24] MEDS ORDERED: hydroCHLOROthiazide 12.5 MG CAPSULE PO SCH (09:00)
[2019-10-24] MEDS ORDERED: METOPROLOL SUCCINATE XL 50 MG TABLET PO SCH (09:00)
[2019-10-24] MEDS ORDERED: amLODIPine 5 MG TABLET PO SCH (09:00)
[2019-10-24] MEDS ORDERED: FENOFIBRATE 145 MG TABLET PO SCH (09:00)
[2019-10-24] MEDS: ASCORBIC ACID 500 MG TABLET PO SCH (09:14)
[2019-10-24] MEDS: APIXABAN 2.5 MG TABLET PO SCH (09:14)
[2019-10-24] MEDS: SOTALOL 80 MG TABLET PO SCH (09:15)
== END 2019-10-24 10:41 | disposition home or self-care (01) ==
LOC: N.EDINP 15:02 → N.ED 15:02 → N.TELEN 17:05
PROVIDERS: ADMIT Internal Medicine Cardiovascular Disease; ATTEND Internal Medicine Cardiovascular Disease

== ENCOUNTER 2019-10-30 20:14 | Inpatient (IN) ==
[2019-10-30] MEDS ORDERED: SODIUM CHLORIDE 0.9% 500 ML IV STA (20:37)
[2019-10-30] MEDS ORDERED: ONDANSETRON 4 MG/2 ML VIAL IV STA (20:37)
[2019-10-30 20:45] LABS: Basophils % 0.4 % (0.0-0.8); Eosinophils # 0.2 10*3/uL (0.0-0.87); Eosinophils % 2.6 % (0.00-10.9); Hemoglobin 13.8 GM/DL (14.0-18.0); Immature Granulocytes % 0.3 %; Immature Granulocytes Absolute 0.03 #; Lymphocytes # 1.9 10*3/uL (1.4-4.0); Lymphocytes % 20.1 % (21.2-54.2); Mean Corpuscular HGB Conc 32.1 GM/DL (32-36); Mean Corpuscular Volume 95.6 FL (87-102); Mean Platelet Volume 10.1 FL (9.6-12.0); Monocytes % 6.7 % (1.7-12.7); Neutrophils % 69.9 % (38.7-73.9); Platelet Count 310 T/CUMM (130-400); Red Cell Distribution Width 14.1 % (9.3-17.3); White Blood Count 9.2 T/CUMM (4-12)
[2019-10-30 21:22] LABS: Alanine Aminotransferase 43 U/L (16-61); Albumin 3.9 G/DL (3.4-5.0); Alkaline Phosphatase 87 U/L (45-117); Aspartate Amino Transferase 30 U/L (0-37); Blood Urea Nitrogen 27 MG/DL (7-18); Calcium 9.2 MG/DL (8.5-10.1); Estimated Glom Filtration Rate 70 ML/MIN; Free T4 (Free Thyroxine) 0.99 NG/DL (0.76-1.46); Glucose 124 MG/DL (74-106); Osmolality,Calculated 275.1 MOS/KG (273-304); Total Protein 7.1 G/DL (6.4-8.3); Troponin I 0.028 NG/ML (0.00-0.045)
[2019-10-30] MEDS ORDERED: methylPREDNISolone SOD SUC 125 MG/2 ML VIAL ONE (22:49)
[2019-10-30 22:59] LABS: Apearance,Urine CLEAR (Clear); Bilirubin,Urine Negative (Negative); Blood, Urine Negative (Negative); Glucose,Urine (UA) Negative (Negative); Ketones,Urine 5 mg/dL (Negative); Mucus,Urine Few /LPF (Occasional); Nitrite,Urine Negative (Negative); Protein,Urine Negative; RBC,Urine <1 /HPF (0-4); Urine Color Amber (Yellow); Urine Specific Gravity 1.028 (1.001-1.035); Urine Urobilinogen < 2.0 EU/DL (0.2-1.0); WBC,Urine 3 /HPF (0-6)
[2019-10-30] MEDS ORDERED: methylPREDNISolone SOD SUC 125 MG/2 ML VIAL IV ONE (23:00)
[2019-10-31] MEDS: SODIUM CHLORIDE 0.9% 1,000 ML IV SCH
[2019-10-31] MEDS ORDERED: ONDANSETRON 4 MG/2 ML VIAL IV PRN (00:15)
[2019-10-31] MEDS ORDERED: MAGNESIUM SULF RIDER 4 GM in PREMIX 1 EACH IV PRN (00:15)
[2019-10-31] MEDS ORDERED: POTASSIUM CHLORIDE 20 MEQ TABLET PO PRN (00:15)
[2019-10-31] MEDS ORDERED: MAGNESIUM SULF RIDER 2 GM in PREMIX 1 EACH IV PRN (00:15)
[2019-10-31 04:22] LABS: Basophils % 0.2 % (0.0-0.8); Eosinophils % 0.2 % (0.00-10.9); Hematocrit 39.6 VOL% (42.0-52.0); Hemoglobin 12.8 GM/DL (14.0-18.0); Immature Granulocytes % 0.3 %; Immature Granulocytes Absolute 0.02 #; Lymphocytes # 0.5 10*3/uL (1.4-4.0); Mean Corpuscular HGB Conc 32.3 GM/DL (32-36); Mean Corpuscular Volume 93.8 FL (87-102); Mean Platelet Volume 10.2 FL (9.6-12.0); Monocytes % 1.5 % (1.7-12.7); Neutrophils % 89.8 % (38.7-73.9); Platelet Count 260 T/CUMM (130-400); Red Blood Count 4.22 MC/CUMM (3.8-5.5); Red Cell Distribution Width 14.1 % (9.3-17.3); White Blood Count 6.5 T/CUMM (4-12)
[2019-10-31 04:42] LABS: Albumin 3.4 G/DL (3.4-5.0); Bilirubin,Total 0.6 MG/DL (0.2-1.0); Calcium 8.5 MG/DL (8.5-10.1); Osmolality,Calculated 274.4 MOS/KG (273-304); Risk Ratio 2.08; Total Protein 6.5 G/DL (6.4-8.3); VLDL CHOLESTEROL 20.6 MG/DL
[2019-10-31] MEDS: methylPREDNISolone SOD SUC 40 MG/1 ML VIAL IV SCH ×3 (08:25→22:50)
[2019-10-31] MEDS ORDERED: LIDOCAINE 1% 20 ML VIAL ONE (08:47)
[2019-10-31] MEDS ORDERED: HEPARIN/NACL 0.9% 2 UNITS/ML 500 ML IV ONE (08:47)
[2019-10-31] MEDS ORDERED: HYDROmorphone 2 MG/1 ML VIAL ONE ×2 (08:56→09:24)
[2019-10-31] MEDS ORDERED: MIDAZOLAM 2 MG/2 ML VIAL ONE ×2 (08:57→09:24)
[2019-10-31] MEDS ORDERED: SODIUM CHLORIDE 0.9% 1,000 ML IV STA (09:08)
[2019-10-31 12:06] LABS: Troponin I 0.187 NG/ML (0.00-0.045)
[2019-10-31] MEDS: PIPERACILLIN/TAZOBACTAM 3,375 MG in SODIUM CHLORIDE 0.9% 100 ML IV SCH ×2 (12:17→21:12)
[2019-10-31] MEDS: PANTOPRAZOLE 40 MG TABLET PO SCH (12:18)
[2019-10-31] MEDS: ASCORBIC ACID 500 MG TABLET PO SCH (21:12)
[2019-11-01 03:06] LABS: Hematocrit 36.3 VOL% (42.0-52.0); Immature Granulocytes % 0.4 %; Immature Granulocytes Absolute 0.03 #; Lymphocytes # 0.6 10*3/uL (1.4-4.0); Lymphocytes % 7.4 % (21.2-54.2); Mean Corpuscular HGB Conc 33.1 GM/DL (32-36); Mean Corpuscular Volume 93.3 FL (87-102); Mean Platelet Volume 10.4 FL (9.6-12.0); Monocytes % 2.3 % (1.7-12.7); Neutrophils % 89.9 % (38.7-73.9); Platelet Count 218 T/CUMM (130-400); Red Blood Count 3.89 MC/CUMM (3.8-5.5); Red Cell Distribution Width 13.7 % (9.3-17.3)
[2019-11-01 03:27] LABS: Calcium 8.4 MG/DL (8.5-10.1); Osmolality,Calculated 279.8 MOS/KG (273-304)
[2019-11-01] MEDS: PIPERACILLIN/TAZOBACTAM 3,375 MG in SODIUM CHLORIDE 0.9% 100 ML IV SCH ×3 (04:34→19:30)
[2019-11-01] MEDS: SODIUM CHLORIDE 0.9% 1,000 ML IV SCH ×2 (04:38→06:07)
[2019-11-01] MEDS: methylPREDNISolone SOD SUC 40 MG/1 ML VIAL IV SCH ×3 (06:08→21:36)
[2019-11-01] MEDS: FENOFIBRATE 145 MG TABLET PO SCH (08:31)
[2019-11-01] MEDS: ASCORBIC ACID 500 MG TABLET PO SCH ×2 (08:32→20:26)
[2019-11-01] MEDS: PANTOPRAZOLE 40 MG TABLET PO SCH (08:32)
[2019-11-01] MEDS: ASPIRIN EC 81 MG TABLET PO SCH (08:32)
[2019-11-01] MEDS: ROSUVASTATIN 20 MG TABLET PO SCH (20:26)
[2019-11-02] MEDS: PIPERACILLIN/TAZOBACTAM 3,375 MG in SODIUM CHLORIDE 0.9% 100 ML IV SCH ×3 (02:33→21:12)
[2019-11-02 04:33] LABS: Basophils % 0.1 % (0.0-0.8); Hematocrit 36.1 VOL% (42.0-52.0); Hemoglobin 11.6 GM/DL (14.0-18.0); Immature Granulocytes % 0.6 %; Immature Granulocytes Absolute 0.06 #; Lymphocytes # 0.7 10*3/uL (1.4-4.0); Mean Corpuscular HGB Conc 32.1 GM/DL (32-36); Mean Corpuscular Volume 93.8 FL (87-102); Mean Platelet Volume 10.4 FL (9.6-12.0); Monocytes % 2.7 % (1.7-12.7); Neutrophils % 89.6 % (38.7-73.9); Platelet Count 201 T/CUMM (130-400); Red Blood Count 3.85 MC/CUMM (3.8-5.5); Red Cell Distribution Width 13.8 % (9.3-17.3); White Blood Count 10.3 T/CUMM (4-12)
[2019-11-02 04:56] LABS: Calcium 8.3 MG/DL (8.5-10.1); Osmolality,Calculated 285.4 MOS/KG (273-304)
[2019-11-02] MEDS: methylPREDNISolone SOD SUC 40 MG/1 ML VIAL IV SCH ×3 (06:20→21:50)
[2019-11-02] MEDS: SODIUM CHLORIDE 0.9% 1,000 ML IV SCH ×2 (08:27→21:12)
[2019-11-02] MEDS: ASCORBIC ACID 500 MG TABLET PO SCH ×2 (09:42→21:49)
[2019-11-02] MEDS: DOCUSATE SODIUM 100 MG CAPSULE PO PRN (09:42)
[2019-11-02] MEDS: FENOFIBRATE 145 MG TABLET PO SCH (09:42)
[2019-11-02] MEDS: PANTOPRAZOLE 40 MG TABLET PO SCH (09:43)
[2019-11-02] MEDS: ROSUVASTATIN 20 MG TABLET PO SCH (09:43)
[2019-11-02] MEDS: ASPIRIN EC 81 MG TABLET PO SCH (09:43)
[2019-11-03] MEDS: PIPERACILLIN/TAZOBACTAM 3,375 MG in SODIUM CHLORIDE 0.9% 100 ML IV SCH ×3 (02:40→20:00)
[2019-11-03 04:44] LABS: Basophils % 0.1 % (0.0-0.8); Hematocrit 38.6 VOL% (42.0-52.0); Hemoglobin 12.4 GM/DL (14.0-18.0); Immature Granulocytes % 0.7 %; Immature Granulocytes Absolute 0.06 #; Lymphocytes # 0.7 10*3/uL (1.4-4.0); Lymphocytes % 7.2 % (21.2-54.2); Mean Corpuscular HGB Conc 32.1 GM/DL (32-36); Mean Corpuscular Volume 95.8 FL (87-102); Mean Platelet Volume 10.4 FL (9.6-12.0); Monocytes % 3.7 % (1.7-12.7); Neutrophils % 88.3 % (38.7-73.9); Platelet Count 199 T/CUMM (130-400); Red Blood Count 4.03 MC/CUMM (3.8-5.5); Red Cell Distribution Width 14.1 % (9.3-17.3); White Blood Count 9.2 T/CUMM (4-12)
[2019-11-03 05:04] LABS: Calcium 8.5 MG/DL (8.5-10.1); Osmolality,Calculated 280.5 MOS/KG (273-304)
[2019-11-03] MEDS: methylPREDNISolone SOD SUC 40 MG/1 ML VIAL IV SCH ×3 (07:17→22:00)
[2019-11-03] MEDS: ROSUVASTATIN 20 MG TABLET PO SCH (09:35)
[2019-11-03] MEDS: DOCUSATE SODIUM 100 MG CAPSULE PO PRN (09:35)
[2019-11-03] MEDS: FENOFIBRATE 145 MG TABLET PO SCH (09:35)
[2019-11-03] MEDS: ASCORBIC ACID 500 MG TABLET PO SCH ×2 (09:35→21:15)
[2019-11-03] MEDS: ASPIRIN EC 81 MG TABLET PO SCH (09:36)
[2019-11-03] MEDS: PANTOPRAZOLE 40 MG TABLET PO SCH (09:36)
[2019-11-03] MEDS: SODIUM CHLORIDE 0.9% 1,000 ML IV SCH (09:59)
[2019-11-03] MEDS ORDERED: FUROSEMIDE 40 MG TABLET PO ONE (14:13)
[2019-11-04] MEDS: PIPERACILLIN/TAZOBACTAM 3,375 MG in SODIUM CHLORIDE 0.9% 100 ML IV SCH ×3 (06:39→21:21)
[2019-11-04] MEDS: methylPREDNISolone SOD SUC 40 MG/1 ML VIAL IV SCH ×2 (06:39→17:54)
[2019-11-04 06:46] LABS: Basophils % 0.1 % (0.0-0.8); Hematocrit 40.7 VOL% (42.0-52.0); Hemoglobin 13.2 GM/DL (14.0-18.0); Immature Granulocytes % 0.4 %; Immature Granulocytes Absolute 0.04 #; Lymphocytes % 10.7 % (21.2-54.2); Mean Corpuscular HGB Conc 32.4 GM/DL (32-36); Mean Corpuscular Volume 95.3 FL (87-102); Mean Platelet Volume 10.8 FL (9.6-12.0); Neutrophils % 82.8 % (38.7-73.9); Platelet Count 239 T/CUMM (130-400); Red Blood Count 4.27 MC/CUMM (3.8-5.5); Red Cell Distribution Width 14.1 % (9.3-17.3)
[2019-11-04 07:11] LABS: Calcium 8.8 MG/DL (8.5-10.1); Osmolality,Calculated 279.5 MOS/KG (273-304)
[2019-11-04] MEDS: ROSUVASTATIN 20 MG TABLET PO SCH (09:42)
[2019-11-04] MEDS: ASPIRIN EC 81 MG TABLET PO SCH (09:42)
[2019-11-04] MEDS: PANTOPRAZOLE 40 MG TABLET PO SCH (09:42)
[2019-11-04] MEDS: DOCUSATE SODIUM 100 MG CAPSULE PO PRN (09:42)
[2019-11-04] MEDS: ASCORBIC ACID 500 MG TABLET PO SCH ×2 (09:42→21:22)
[2019-11-04] MEDS: FENOFIBRATE 145 MG TABLET PO SCH (09:42)
[2019-11-05] MEDS: PIPERACILLIN/TAZOBACTAM 3,375 MG in SODIUM CHLORIDE 0.9% 100 ML IV SCH (03:37)
[2019-11-05] MEDS: methylPREDNISolone SOD SUC 40 MG/1 ML VIAL IV SCH (05:15)
[2019-11-05 06:12] LABS: Basophils % 0.1 % (0.0-0.8); Eosinophils % 0.1 % (0.00-10.9); Hematocrit 43.3 VOL% (42.0-52.0); Hemoglobin 13.9 GM/DL (14.0-18.0); Immature Granulocytes % 0.6 %; Immature Granulocytes Absolute 0.07 #; Lymphocytes # 1.4 10*3/uL (1.4-4.0); Lymphocytes % 12.7 % (21.2-54.2); Mean Corpuscular HGB Conc 32.1 GM/DL (32-36); Mean Corpuscular Volume 95.6 FL (87-102); Mean Platelet Volume 10.4 FL (9.6-12.0); Monocytes % 7.6 % (1.7-12.7); Neutrophils % 78.9 % (38.7-73.9); Platelet Count 262 T/CUMM (130-400); Red Blood Count 4.53 MC/CUMM (3.8-5.5); Red Cell Distribution Width 14.2 % (9.3-17.3); White Blood Count 10.8 T/CUMM (4-12)
[2019-11-05 06:31] LABS: Calcium 9.1 MG/DL (8.5-10.1); Osmolality,Calculated 279.7 MOS/KG (273-304)
[2019-11-05] MEDS: PANTOPRAZOLE 40 MG TABLET PO SCH (08:52)
[2019-11-05] MEDS: ROSUVASTATIN 20 MG TABLET PO SCH (08:52)
[2019-11-05] MEDS: ASCORBIC ACID 500 MG TABLET PO SCH (08:52)
[2019-11-05] MEDS: ASPIRIN EC 81 MG TABLET PO SCH (08:52)
[2019-11-05] MEDS: FENOFIBRATE 145 MG TABLET PO SCH (08:52)
[2019-11-05] MEDS ORDERED: SOTALOL 80 MG TABLET PO SCH (09:00)
[2019-11-05 11:56] VITALS: BP 130/78
== END 2019-11-05 12:25 | disposition home or self-care (01) | DRG 187 ==
LOC: N.ED 20:14 → N.EDINP 20:14 → N.TELES 10-31 10:52